=== PATIENT | female | born 1980 | race Caucasian/White ===

== ENCOUNTER 2017-12-22 15:34 | Observation (INO) | payer OTHER ==
[~2017-12-22] VITALS: Ht 180.3 cm; Wt 101.0 kg
[~2017-12-22 15:34] MED LIST: ADVIL200 MG PO; ALDOMET500 MG PO; AMLODIPINE BESY10 MG PO; ASPIR-LOW81 MG PO; CLOPIDOGREL75 MG PO; ECOTRIN325 MG PO; HYDROCHLOROTHIA25 MG PO; LITE COAT ASPI325 M1 PO; LOPRESSOR25 MG PO; METOPROLOL TART50 MG PO; MOTRIN800 MG PO; NORVASC10 MG PO; PRAVASTATIN SOD40 MG PO; PRILOSEC20 MG PO
[2017-12-22 15:53] LABS: BASOPHIL (%) 0.6 % (0-1); BASOPHIL COUNT 0.1 K/uL (0-0.1); EOSINOPHIL (%) 1.4 % (0-5); EOSINOPHIL COUNT 0.2 K/uL (0-0.3); HEMATOCRIT 40.5 % (36.0-46.0); HEMOGLOBIN 13.7 G/DL (11.9-15.5); IMMATURE GRANULOCYTE (%) 0.5 % (0.0-0.7); LYMPHOCYTE (%) 17.7 % (15-42); LYMPHOCYTE COUNT 2.2 K/uL (1.0-2.8); MCH 29.9 PG (29.0-34.0); MCHC 33.8 G/DL (30.0-36.0); MCV 88.4 FL (83-99); MONOCYTE (%) 6.6 % (3-12); MONOCYTE COUNT 0.8 K/uL (0-0.8); NEUTROPHIL (%) 73.2 % (45-76); NEUTROPHIL COUNT 9.2 K/uL (1.8-6.4); PLATELET COUNT 455 K/uL (156-360); RBC DIS.WIDTH-CV 13.2 % (11.8-14.6); RBC DIS.WIDTH-SD 42.8 % (39-53); RED BLOOD COUNT 4.58 M/uL (3.80-5.20); WHITE BLOOD COUNT 12.6 K/uL (4.1-10.2)
[2017-12-22 16:02] LABS: AMYLASE 37 IU/L (1-118); CHLORIDE 105 mEq/L (99-109); POTASSIUM 3.7 mEq/L (3.7-5.4); SODIUM 139 mEq/L (136-147)
[2017-12-22 16:03] LABS: INTER. NORMALIZED RATIO 1.1
[2017-12-22 16:03] LABS: GLUCOSE 116 mg/dL (70-99)
[2017-12-22 16:06] LABS: PTT 44.8 SEC (25-37)
[2017-12-22 16:06] LABS: SERUM ETHYL ALCOHOL < 10 mg/dL
[2017-12-22 16:07] LABS: CREATININE 0.7 mg/dL (0.6-1.3); GFR ESTIMATE (CALCULATED) > 59 mL/min/
[2017-12-22 16:08] LABS: UREA NITROGEN (BUN) 13 mg/dL (9-23)
[2017-12-22 16:10] LABS: LIPASE 30 U/L (1.0-51.0)
[2017-12-22 16:13] LABS: TROP-I INTERPRETATION NEGATIVE; TROPONIN-I < 0.01 ng/mL (0.0-0.30)
[2017-12-22 16:16] LABS: QUANTITATIVE HCG < 4.0 MIU/ML
[2017-12-22 16:55] LABS: APPEARANCE SL.HAZY ((CLEAR)); BILIRUBIN NEGATIVE; BLOOD NEGATIVE; COLOR YELLOW ((YELLOW)); GLUCOSE (STRIP) NEGATIVE; KETONES NEGATIVE; LEUKOCYTES NEGATIVE; NITRITE NEGATIVE; PROTEIN (STRIP) 30; SPECIFIC GRAVITY 1.023 (1.000-1.030); UROBILINOGEN 0.2 MG/DL (0.2-1.0)
[2017-12-22 16:59] LABS: BACTERIA RARE /HPF; EPITHELIAL CELLS 2+ /HPF; HYALINE CASTS 0-5 /LPF; MUCUS 2+ /LPF; RED BLOOD CELLS 0-5 /HPF (0-5); UCUL ADDED? NO; WHITE BLOOD CELLS 0-5 /HPF (0-5)
[2017-12-22 17:08] LABS: AMPHETAMINE NEGATIVE (500 ng/mL); BARBITURATES NEGATIVE (200 ng/mL); BENZODIAZEPINES NEGATIVE (150 ng/mL); BUPRENORPHINE NEGATIVE (10 ng/mL); COCAINE NEGATIVE (150 ng/mL); METHADONE NEGATIVE (200 ng/mL); METHAMPHETAMINE NEGATIVE (500 ng/mL); OPIATES (MORPHINE) NEGATIVE (100 ng/mL); OXYCODONE NEGATIVE (100 ng/mL); PHENCYCLIDINE NEGATIVE (25 ng/mL); PROPOXYPHENE NEGATIVE (300 ng/mL); THC CANNABINOIDS NEGATIVE (50 ng/mL); TRICYCLIC ANTIDEPRESSANTS NEGATIVE (300 ng/mL)
[2017-12-22] MEDS ORDERED: ASPIR-LOW81 MG PO (18:52)
[2017-12-22] MEDS ORDERED: PLAVIX75 MG PO (18:53)
[2017-12-22] MEDS ORDERED: LEVOTHYROXINE75 MCG PO (18:54)
[2017-12-22 21:03] VITALS: BP 162/83
[2017-12-22 22:08] LABS: HDL CHOLESTEROL 37 MG/DL (Desirable>=50); LDL CHOLESTEROL 98 mg/dL (Desirable<100); NON-HDL CHOLESTEROL 146 mg/dL (Desirable<160); TOTAL CHOLESTEROL 183 mg/dL (Desirable<200); TRIGLYCERIDES 238 MG/DL (Normal: <150)
[2017-12-23 00:05] VITALS: BP 162/70
[2017-12-23 04:00] VITALS: BP 158/67
[2017-12-23 07:43] VITALS: BP 141/75
[2017-12-23 08:58] LABS: HEMATOCRIT 38.5 % (36.0-46.0); MCHC 33.8 G/DL (30.0-36.0); MCV 88.7 FL (83-99); PLATELET COUNT 398 K/uL (156-360); RBC DIS.WIDTH-CV 13.2 % (11.8-14.6); RBC DIS.WIDTH-SD 42.6 % (39-53); RED BLOOD COUNT 4.34 M/uL (3.80-5.20); WHITE BLOOD COUNT 8.7 K/uL (4.1-10.2)
[2017-12-23 09:32] LABS: CHLORIDE 105 MEQ/L (99-109); CREATININE 0.5 MG/DL (0.6-1.3); GFR ESTIMATE (CALCULATED) > 59 mL/min/; GLUCOSE 108 mg/dL (70-99); POTASSIUM 4.2 MEQ/L (3.7-5.4); SODIUM 139 MEQ/L (136-147); UREA NITROGEN (BUN) 13 mg/dL (9-23)
[2017-12-23] MEDS ORDERED: ATORVASTATIN CA40 MG PO (10:55)
[2017-12-23] MEDS ORDERED: MECLIZINE HCL25 MG PO (10:56)
[2017-12-23 11:14] VITALS: BP 146/76
== END 2017-12-23 13:04 | disposition home or self-care (01) ==
LOC: EME 15:34 → 4SOUTH 19:08 → EDOF 19:08 → ENRESERV 19:09 → 4SOUTH 20:43
PROVIDERS: Emergency Medicine; Hospitalist; Physician Assistant
DX: R42 Dizziness and giddiness (principal); I10 Essential (primary) hypertension; Z86.73 Personal history of transient ischemic attack (TIA), and cerebral infarction without residual deficits; E03.9 Hypothyroidism, unspecified; R73.03 Prediabetes; E66.01 Morbid (severe) obesity due to excess calories; Z79.82 Long term (current) use of aspirin; Z79.02 Long term (current) use of antithrombotics/antiplatelets; Z82.49 Family history of ischemic heart disease and other diseases of the circulatory system; Z82.3 Family history of stroke; Z80.1 Family history of malignant neoplasm of trachea, bronchus and lung; Z88.0 Allergy status to penicillin; Z91.013 Allergy to seafood; Z87.891 Personal history of nicotine dependence
CPT/HCPCS: 70450; 70544; 70551; 80048; 80061; 81003; 82150; 82948; 83036; 83690; 84484; 84702; 85025; 85027; 85610; 85730; 86850; 86870; 86900; 86901; 86905; 86920; 93005; 93880; 99281; 99285; G0378; G0480; J1644; J1815

== ENCOUNTER 2017-12-25 02:29 | Emergency (ER) | payer OTHER ==
[~2017-12-25] VITALS: Ht 180.3 cm; Wt 154.9 kg
[~2017-12-25 02:29] MED LIST changes: +ATORVASTATIN CA40 MG PO; +LEVOTHYROXINE75 MCG PO; +MECLIZINE HCL25 MG PO; +PLAVIX75 MG PO
[2017-12-25 04:37] LABS: HEMATOCRIT 39.1 % (36.0-46.0); HEMOGLOBIN 13.4 G/DL (11.9-15.5); MCH 30.2 PG (29.0-34.0); MCHC 34.3 G/DL (30.0-36.0); MCV 88.1 FL (83-99); PLATELET COUNT 444 K/uL (156-360); RBC DIS.WIDTH-CV 13.1 % (11.8-14.6); RBC DIS.WIDTH-SD 42.1 % (39-53); RED BLOOD COUNT 4.44 M/uL (3.80-5.20); WHITE BLOOD COUNT 14.9 K/uL (4.1-10.2)
[2017-12-25 04:41] LABS: INTER. NORMALIZED RATIO 1.1
[2017-12-25 04:44] LABS: PTT 48.5 SEC (25-37)
[2017-12-25 04:46] LABS: CHLORIDE 106 mEq/L (99-109); SODIUM 137 mEq/L (136-147)
[2017-12-25 04:48] LABS: GLUCOSE 121 mg/dL (70-99)
[2017-12-25 04:52] LABS: CREATININE 0.7 mg/dL (0.6-1.3); GFR ESTIMATE (CALCULATED) > 59 mL/min/
[2017-12-25 04:53] LABS: UREA NITROGEN (BUN) 16 mg/dL (9-23)
[2017-12-25 05:37] LABS: APPEARANCE CLEAR ((CLEAR)); BILIRUBIN NEGATIVE; BLOOD NEGATIVE; COLOR YELLOW ((YELLOW)); GLUCOSE (STRIP) NEGATIVE; KETONES NEGATIVE; LEUKOCYTES NEGATIVE; NITRITE NEGATIVE; PROTEIN (STRIP) NEGATIVE; SPECIFIC GRAVITY 1.021 (1.000-1.030); UCUL ADDED? NO; UROBILINOGEN 0.2 MG/DL (0.2-1.0)
[2017-12-25 05:58] VITALS: BP 148/85
== END 2017-12-25 05:59 | disposition home or self-care (01) ==
LOC: EME → EDBD 02:29 → EME 05:59
PROVIDERS: Physician Assistant
DX: S00.03XA Contusion of scalp, initial encounter (principal); W18.30XA Fall on same level, unspecified, initial encounter; W22.8XXA Striking against or struck by other objects, initial encounter; Y92.008 Other place in unspecified non-institutional (private) residence as the place of occurrence of the external cause; R42 Dizziness and giddiness; I10 Essential (primary) hypertension; J45.909 Unspecified asthma, uncomplicated; E03.9 Hypothyroidism, unspecified; G43.909 Migraine, unspecified, not intractable, without status migrainosus; F41.9 Anxiety disorder, unspecified; Z79.02 Long term (current) use of antithrombotics/antiplatelets; Z79.82 Long term (current) use of aspirin; Z86.73 Personal history of transient ischemic attack (TIA), and cerebral infarction without residual deficits; Z87.891 Personal history of nicotine dependence; Z88.0 Allergy status to penicillin; Z91.013 Allergy to seafood
CPT/HCPCS: 70450; 80048; 81003; 85027; 85610; 85730; 93005; J7030